=== PATIENT | female | born 1995 | race African-American/Black ===

== ENCOUNTER → 2016-05-06 | Outpatient (CLI) | payer OTHER ==
[~2016-05-06] VITALS: Ht 160 cm; Wt 139.3 kg
[~2016-05-06] MED LIST: ADVAIR 250/501 DISK IH; AMOXICILLIN500 MG PO; AUGMENTIN875 MG PO; AZITHROMYCIN250 MG1 PO; BACTRIM,SEPT1 TABLET PO; BENTYL10 MG PO; BENTYL20 MG PO; CEFDINIR300 MG PO; CIPRO250 MG PO; CIPRO500 MG PO; CIPROFLOXACIN250 MG PO; CLINDAMYCIN HC300 MG PO; CLINORIL200 MG PO; DIFLUCAN150 MG PO; ECONAZOLE NITRA15 GM TP; ENDOCET 5-3251 EACH PO; FLEXERIL10 MG PO; HUMALOG MI100 UNIT/6 SC; HUMALOG MI100 UNIT/6 SQ; HUMULIN R500 UNITS/ SC; IBUPROFEN800 MG PO; IMODIUM MS REL1 EACH PO; INSULIN SYRING1 EA30 MC; KEFLEX500 MG PO; LEVAQUIN500 MG PO; LEVEMIR100 UNIT/2 SC; LORTAB 5-325 M1 EACH PO; LYRICA100 MG PO; MAGIC MOUTHWASH1 ML MM; MEDROL DOSEPAK4 MG PO; MOTRIN600 MG PO; MOTRIN800 MG PO; NAPROSYN500 MG PO; NORCO 5/3251 TABLET PO; NYSTATIN15 G1 TP; OMEPRAZOLE40 M1 PO; PERCOCET 5/31 TABLET PO; PREDNISONE20 MG PO; PROVENTIL2.5 MG/3 M IH; REGLAN5 MG PO; ROBITUSSIN AC,T10 ML PO; SOMA350 MG PO; TEST STRIPS MC; ULTRACET1 TABLET PO; VALACYCLOVIR1000 MG PO; VALIUM5 MG PO; VENTOLIN HFA18 GM IH; WOMEN'S DAILY1 EAC1 PO; ZADITOR 0.100 DROP/5 BOTH EYES; ZANTAC150 MG PO; ZITHROMAX Z-PA250 MG PO; ZOFRAN4 MG PO; ZOFRAN8 MG PO; ZYRTEC10 M3 PO
[2016-05-06 15:12] LABS: POINT-OF-CARE METER ID UU13113694
[2016-05-06 15:13] LABS: ANION GAP 11 MEQ/L (2-14); CHLORIDE 99 MEQ/L (99-109); GFR ESTIMATE (CALCULATED) > 59 mL/min/; GLUCOSE 193 mg/dL (70-99); POTASSIUM 4.5 MEQ/L (3.7-5.4); SAMPLE HEMOLYSIS CHECK 0; SAMPLE ICTERIC CHECK 0; SAMPLE LIPEMIA CHECK 0; SODIUM 138 MEQ/L (136-147); UREA NITROGEN (BUN) 6 mg/dL (9-23)
[2016-05-06 16:34] LABS: POINT-OF-CARE METER ID UU13113819
== END | disposition home or self-care (01) ==
LOC: AMB 14:23
PROVIDERS: Specialist
DX: R93.3 Abnormal findings on diagnostic imaging of other parts of digestive tract (principal); K29.70 Gastritis, unspecified, without bleeding; M79.7 Fibromyalgia; E10.9 Type 1 diabetes mellitus without complications; Z79.4 Long term (current) use of insulin
CPT/HCPCS: 80048; 82948; 88305; 88342 TC; J2250

== ENCOUNTER 2016-06-06 01:02 | Inpatient (IN) | payer OTHER ==
[~2016-06-06] VITALS: Ht 160 cm; Wt 129.9 kg
[2016-06-06 01:39] LABS: BASOPHIL COUNT 0.1 K/uL (0-0.1); EOSINOPHIL (%) 0.3 % (0-5); HEMATOCRIT 39.5 % (36.0-46.0); IMMATURE GRANULOCYTE (%) 0.7 % (0.0-0.7); IMMATURE GRANULOCYTE COUNT 0.7 K/uL; LYMPHOCYTE COUNT 2.1 K/uL (1.0-2.8); MCH 27.7 PG (29.0-34.0); MCHC 33.2 G/DL (30.0-36.0); MCV 83.5 FL (83-99); MEAN PLAT.VOLUME 9.8 uM^3 (9.5-12.4); MONOCYTE COUNT 0.8 K/uL (0-0.8); NEUTROPHIL (%) 70.4 % (45-76); NEUTROPHIL COUNT 7.2 K/uL (1.8-6.4); PLATELET COUNT 399 K/uL (156-360); RBC DIS.WIDTH-CV 13.5 % (11.8-14.6); RBC DIS.WIDTH-SD 40.4 % (39-53); RED BLOOD COUNT 4.73 M/uL (3.80-5.20); WHITE BLOOD COUNT 10.2 K/uL (4.1-10.2)
[2016-06-06 01:47] LABS: CHLORIDE 94 mEq/L (99-109); POTASSIUM 4.7 mEq/L (3.7-5.4); SODIUM 129 mEq/L (136-147)
[2016-06-06 01:51] LABS: ADD MIUA? NO; BILIRUBIN NEGATIVE; BLOOD NEGATIVE; COLOR COLORLESS ((YELLOW)); GLUCOSE (STRIP) >=500; KETONES NEGATIVE; LEUKOCYTES NEGATIVE; NITRITE NEGATIVE; PROTEIN (STRIP) NEGATIVE; SPECIFIC GRAVITY 1.026 (1.000-1.030); UCUL ADDED? NO; UROBILINOGEN 0.2 MG/DL (0.2-1.0)
[2016-06-06 01:51] LABS: TOTAL BILIRUBIN 0.3 mg/dL (0.0-1.0)
[2016-06-06 01:53] LABS: ALKALINE PHOSPHATASE 107 IU/L (3-129); GFR ESTIMATE (CALCULATED) > 59 mL/min/
[2016-06-06 01:54] LABS: UREA NITROGEN (BUN) 14 mg/dL (9-23)
[2016-06-06 01:56] LABS: LIPASE 36 U/L (1.0-51.0)
[2016-06-06 01:58] LABS: GLUCOSE 634 mg/dL (70-99)
[2016-06-06 02:03] LABS: QUANTITATIVE HCG < 4.0 MIU/ML
[2016-06-06 07:45] LABS: Estimated Average Glucose 312 mg/dL (70-123); HEMOGLOBIN A1c (GLYCOHEMOGLOB) 12.5 % HGB (Below 5.7)
[2016-06-06 08:34] VITALS: BP 114/58
[2016-06-06] MEDS ORDERED: ALBUTEROL2.5 MG/3 M IH (09:28)
[2016-06-06] MEDS ORDERED: ERGOCALCIF50000 UNIT PO (09:28)
[2016-06-06 11:24] LABS: POINT-OF-CARE METER ID UU13113778; POINT-OF-CARE USER ID NUTMMM10
[2016-06-06 11:24] LABS: POINT-OF-CARE METER ID UU13113702
[2016-06-06 11:24] LABS: POINT-OF-CARE METER ID UU13113702
[2016-06-06 11:24] LABS: POINT-OF-CARE METER ID UU13113702
[2016-06-06 11:24] LABS: POINT-OF-CARE METER ID UU13113702
[2016-06-06 12:32] VITALS: BP 128/60
[2016-06-06 12:57] LABS: INFLUENZA A VIRAL ANTIGEN POSITIVE; INFLUENZA B VIRAL ANTIGEN NEGATIVE
[2016-06-06 13:20] LABS: GLUCOSE 397 mg/dL (70-99)
[2016-06-06 15:44] VITALS: BP 126/61
[2016-06-06 15:58] LABS: ANION GAP 11 MEQ/L (2-14); CHLORIDE 100 MEQ/L (99-109); GFR ESTIMATE (CALCULATED) > 59 mL/min/; GLUCOSE 371 mg/dL (70-99); POTASSIUM 3.8 MEQ/L (3.7-5.4); SAMPLE HEMOLYSIS CHECK 0; SAMPLE ICTERIC CHECK 0; SAMPLE LIPEMIA CHECK 0; SODIUM 133 MEQ/L (136-147); UREA NITROGEN (BUN) 11 mg/dL (9-23)
[2016-06-06 18:05] LABS: POINT-OF-CARE METER ID UU14162508
[2016-06-06 19:35] VITALS: BP 136/84
[2016-06-06 22:23] LABS: POINT-OF-CARE METER ID UU14162508
[2016-06-06 23:41] VITALS: BP 117/56
[2016-06-07 02:48] LABS: POINT-OF-CARE METER ID UU14162508
[2016-06-07 03:00] VITALS: BP 118/55
[2016-06-07 06:00] LABS: POINT-OF-CARE METER ID UU14162508
[2016-06-07 07:16] LABS: BASOPHIL COUNT 0.1 K/uL (0-0.1); EOSINOPHIL (%) 2.4 % (0-5); EOSINOPHIL COUNT 0.2 K/uL (0-0.3); HEMATOCRIT 37.6 % (36.0-46.0); IMMATURE GRANULOCYTE COUNT 0.1 K/uL; LYMPHOCYTE COUNT 2.4 K/uL (1.0-2.8); MCHC 32.7 G/DL (30.0-36.0); MCV 85.5 FL (83-99); MEAN PLAT.VOLUME 9.6 uM^3 (9.5-12.4); MONOCYTE (%) 12.6 % (3-12); MONOCYTE COUNT 1.1 K/uL (0-0.8); NEUTROPHIL (%) 54.6 % (45-76); NEUTROPHIL COUNT 4.6 K/uL (1.8-6.4); PLATELET COUNT 354 K/uL (156-360); RBC DIS.WIDTH-SD 43.6 % (39-53); WHITE BLOOD COUNT 8.4 K/uL (4.1-10.2)
[2016-06-07 07:31] LABS: ANION GAP 8 MEQ/L (2-14); CHLORIDE 101 MEQ/L (99-109); GFR ESTIMATE (CALCULATED) > 59 mL/min/; GLUCOSE 234 mg/dL (70-99); MAGNESIUM 1.7 mg/dl (1.3-2.7); POTASSIUM 3.8 MEQ/L (3.7-5.4); SAMPLE HEMOLYSIS CHECK 0; SAMPLE ICTERIC CHECK 0; SAMPLE LIPEMIA CHECK 0; SODIUM 133 MEQ/L (136-147); UREA NITROGEN (BUN) 11 mg/dL (9-23)
[2016-06-07 07:40] VITALS: BP 114/54
[2016-06-07 09:02] LABS: POINT-OF-CARE METER ID UU14162508
[2016-06-07 11:28] LABS: HBSG INDEX 0.18; HPCA INDEX 0.16
[2016-06-07 11:29] LABS: ANTI-HEPATITIS A VIRUS (IGM) Nonreactive; HAV INDEX 0.12
[2016-06-07 11:30] LABS: ANTI-HEPATITIS B CORE (IGM) Nonreactive; HBC IgM INDEX 0.18
[2016-06-07 16:09] LABS: POINT-OF-CARE METER ID UU14162508
[2016-06-07 23:37] VITALS: BP 137/74
[2016-06-08 07:55] LABS: ALKALINE PHOSPHATASE 82 IU/L (3-129); ANION GAP 10 MEQ/L (2-14); CHLORIDE 100 MEQ/L (99-109); GFR ESTIMATE (CALCULATED) > 59 mL/min/; GLUCOSE 264 mg/dL (70-99); POTASSIUM 4.5 MEQ/L (3.7-5.4); SAMPLE HEMOLYSIS CHECK 0; SAMPLE ICTERIC CHECK 0; SAMPLE LIPEMIA CHECK 0; SODIUM 134 MEQ/L (136-147); TOTAL BILIRUBIN 0.4 MG/DL (0.0-1.0); UREA NITROGEN (BUN) 8 mg/dL (9-23)
[2016-06-08 08:00] VITALS: BP 114/59
[2016-06-08] MEDS ORDERED: OSELTAMIVIR PHO75 MG PO (14:01)
== END 2016-06-08 15:41 | disposition home or self-care (01) | DRG 638 ==
LOC: EME 01:02 → 2EAST 06:34 → EDOF 06:34 → 2EAST 07:53
PROVIDERS: Emergency Medicine; Hospitalist; Internal Medicine
DX: E11.00 Type 2 diabetes mellitus with hyperosmolarity without nonketotic hyperglycemic-hyperosmolar coma (NKHHC) (principal); Z68.43 Body mass index [BMI] 50.0-59.9, adult; J10.89 Influenza due to other identified influenza virus with other manifestations; K75.81 Nonalcoholic steatohepatitis (NASH); E11.65 Type 2 diabetes mellitus with hyperglycemia; J45.909 Unspecified asthma, uncomplicated; E66.01 Morbid (severe) obesity due to excess calories; Z96.41 Presence of insulin pump (external) (internal); Z79.4 Long term (current) use of insulin; Z91.19 Patient's noncompliance with other medical treatment and regimen
CPT/HCPCS: 71010; 80048; 80048 91; 80053; 80074; 81003; 82009; 82800; 82948; 83036; 83690; 83735; 84702; 84999; 85025; 87493; 87502; 94640 76; 99202; 99281; 99285; J1650; J1815; J7030; S0028

== ENCOUNTER 2016-08-14 04:58 | Emergency (ER) | payer OTHER ==
[~2016-08-14] VITALS: Ht 160 cm; Wt 140.0 kg
[~2016-08-14 04:58] MED LIST changes: +ALBUTEROL2.5 MG/3 M IH; +ERGOCALCIF50000 UNIT PO; +OSELTAMIVIR PHO75 MG PO
[2016-08-14 07:32] LABS: BASOPHIL COUNT 0.1 K/uL (0-0.1); EOSINOPHIL (%) 2.6 % (0-5); EOSINOPHIL COUNT 0.3 K/uL (0-0.3); HEMATOCRIT 38.3 % (36.0-46.0); IMMATURE GRANULOCYTE (%) 0.8 % (0.0-0.7); IMMATURE GRANULOCYTE COUNT 0.1 K/uL; INSTRUMENT ABS NEUTROPHIL CT 8.2 K/uL; LYMPHOCYTE COUNT 3.4 K/uL (1.0-2.8); MCH 27.8 PG (29.0-34.0); MCHC 32.9 G/DL (30.0-36.0); MCV 84.5 FL (83-99); MEAN PLAT.VOLUME 9.4 uM^3 (9.5-12.4); MONOCYTE (%) 7.4 % (3-12); NEUTROPHIL (%) 62.5 % (45-76); NEUTROPHIL COUNT 8.2 K/uL (1.8-6.4); PLATELET COUNT 447 K/uL (156-360); RBC DIS.WIDTH-CV 13.5 % (11.8-14.6); RBC DIS.WIDTH-SD 41.6 % (39-53); RED BLOOD COUNT 4.53 M/uL (3.80-5.20); WHITE BLOOD COUNT 13.1 K/uL (4.1-10.2)
[2016-08-14 08:22] LABS: ANION GAP 10 MEQ/L (2-14); CHLORIDE 99 MEQ/L (99-109); GFR ESTIMATE (CALCULATED) > 59 mL/min/; GLUCOSE 170 mg/dL (70-99); SAMPLE HEMOLYSIS CHECK 1; SAMPLE ICTERIC CHECK 0; SAMPLE LIPEMIA CHECK 1; SODIUM 135 MEQ/L (136-147); UREA NITROGEN (BUN) 9 mg/dL (9-23)
[2016-08-14] MEDS ORDERED: TYLENOL WITH C1 EACH PO (09:22)
[2016-08-14 09:40] VITALS: BP 126/87
== END 2016-08-14 09:41 | disposition home or self-care (01) ==
LOC: EME 04:58
PROVIDERS: Emergency Medicine
DX: M79.604 Pain in right leg (principal); M79.605 Pain in left leg; R25.2 Cramp and spasm; E11.9 Type 2 diabetes mellitus without complications; J45.909 Unspecified asthma, uncomplicated; Z79.4 Long term (current) use of insulin
CPT/HCPCS: 80048; 85025; 93970; 99281; 99284

== ENCOUNTER 2016-09-13 07:38 | Emergency (ER) | payer OTHER ==
[~2016-09-13] VITALS: Ht 160 cm; Wt 136.4 kg
[~2016-09-13 07:38] MED LIST changes: +TYLENOL WITH C1 EACH PO
[2016-09-13 09:20] LABS: BASOPHIL COUNT 0.1 K/uL (0-0.1); EOSINOPHIL (%) 2.4 % (0-5); EOSINOPHIL COUNT 0.2 K/uL (0-0.3); HEMATOCRIT 42.9 % (36.0-46.0); IMMATURE GRANULOCYTE (%) 0.7 % (0.0-0.7); IMMATURE GRANULOCYTE COUNT 0.1 K/uL; INSTRUMENT ABS NEUTROPHIL CT 5.1 K/uL; LYMPHOCYTE COUNT 3.2 K/uL (1.0-2.8); MCH 27.8 PG (29.0-34.0); MCHC 32.6 G/DL (30.0-36.0); MCV 85.3 FL (83-99); MEAN PLAT.VOLUME 9.2 uM^3 (9.5-12.4); MONOCYTE (%) 7.4 % (3-12); MONOCYTE COUNT 0.7 K/uL (0-0.8); NEUTROPHIL (%) 54.4 % (45-76); NEUTROPHIL COUNT 5.1 K/uL (1.8-6.4); PLATELET COUNT 429 K/uL (156-360); RBC DIS.WIDTH-CV 13.5 % (11.8-14.6); RBC DIS.WIDTH-SD 41.7 % (39-53); RED BLOOD COUNT 5.03 M/uL (3.80-5.20); WHITE BLOOD COUNT 9.4 K/uL (4.1-10.2)
[2016-09-13 09:41] LABS: CHLORIDE 98 mEq/L (99-109); POTASSIUM 4.1 mEq/L (3.7-5.4)
[2016-09-13 09:42] LABS: SODIUM 134 mEq/L (136-147)
[2016-09-13 09:43] LABS: GLUCOSE 390 mg/dL (70-99)
[2016-09-13 09:45] LABS: ANION GAP 12 MEQ/L (2-14)
[2016-09-13 09:47] LABS: GFR ESTIMATE (CALCULATED) > 59 mL/min/
[2016-09-13 09:48] LABS: UREA NITROGEN (BUN) 6 mg/dL (9-23)
[2016-09-13 09:51] LABS: TROP-I INTERPRETATION NEGATIVE; TROPONIN-I < 0.01 ng/mL (0.0-0.30)
[2016-09-13 09:56] LABS: QUANTITATIVE HCG < 4.0 MIU/ML
[2016-09-13] MEDS ORDERED: ANTIVERT25 MG PO (11:42)
[2016-09-13 12:32] VITALS: BP 133/89
[2016-09-13] MEDS ORDERED: TYLENOL WITH C1 EACH PO (12:49)
== END 2016-09-13 12:59 | disposition home or self-care (01) ==
LOC: EME 07:38
PROVIDERS: Emergency Medicine
DX: R42 Dizziness and giddiness (principal); E11.65 Type 2 diabetes mellitus with hyperglycemia; R68.84 Jaw pain; R11.0 Nausea; R00.2 Palpitations; R51 Headache; R13.10 Dysphagia, unspecified; R00.0 Tachycardia, unspecified; J45.909 Unspecified asthma, uncomplicated; Z87.442 Personal history of urinary calculi; Z79.4 Long term (current) use of insulin
CPT/HCPCS: 71010; 80048; 84484; 84702; 85025; 93005; 99281; 99285; J2405; J7030

== ENCOUNTER 2016-09-20 07:34 | Emergency (ER) | payer OTHER ==
[~2016-09-20] VITALS: Ht 160 cm; Wt 136.7 kg
[~2016-09-20 07:34] MED LIST changes: +ANTIVERT25 MG PO
[2016-09-20 08:18] LABS: BASOPHIL COUNT 0.1 K/uL (0-0.1); EOSINOPHIL (%) 2.9 % (0-5); EOSINOPHIL COUNT 0.3 K/uL (0-0.3); HEMATOCRIT 41.2 % (36.0-46.0); IMMATURE GRANULOCYTE (%) 0.5 % (0.0-0.7); IMMATURE GRANULOCYTE COUNT 0.1 K/uL; INSTRUMENT ABS NEUTROPHIL CT 5.9 K/uL; LYMPHOCYTE COUNT 2.2 K/uL (1.0-2.8); MCH 27.5 PG (29.0-34.0); MCHC 32.5 G/DL (30.0-36.0); MCV 84.6 FL (83-99); MEAN PLAT.VOLUME 9.2 uM^3 (9.5-12.4); MONOCYTE (%) 7.6 % (3-12); MONOCYTE COUNT 0.7 K/uL (0-0.8); NEUTROPHIL COUNT 5.9 K/uL (1.8-6.4); PLATELET COUNT 433 K/uL (156-360); RBC DIS.WIDTH-CV 13.7 % (11.8-14.6); RBC DIS.WIDTH-SD 42.4 % (39-53); RED BLOOD COUNT 4.87 M/uL (3.80-5.20); WHITE BLOOD COUNT 9.2 K/uL (4.1-10.2)
[2016-09-20 08:42] LABS: ANION GAP 10 MEQ/L (2-14); CHLORIDE 101 MEQ/L (99-109); POTASSIUM 4.2 MEQ/L (3.7-5.4); SAMPLE HEMOLYSIS CHECK 0; SAMPLE ICTERIC CHECK 0; SAMPLE LIPEMIA CHECK 0; SODIUM 135 MEQ/L (136-147); TOTAL BILIRUBIN 0.6 MG/DL (0.0-1.0)
[2016-09-20 08:47] LABS: ALKALINE PHOSPHATASE 100 IU/L (3-129); GFR ESTIMATE (CALCULATED) > 59 mL/min/; GLUCOSE 334 mg/dL (70-99); LIPASE 26 U/L (1.0-51.0); UREA NITROGEN (BUN) 10 mg/dL (9-23)
[2016-09-20 08:52] LABS: ADD MIUA? NO; BILIRUBIN NEGATIVE; BLOOD NEGATIVE; COLOR YELLOW ((YELLOW)); GLUCOSE (STRIP) >=500; KETONES 20; LEUKOCYTES NEGATIVE; NITRITE NEGATIVE; PROTEIN (STRIP) NEGATIVE; SPECIFIC GRAVITY 1.036 (1.000-1.030); UROBILINOGEN 0.2 MG/DL (0.2-1.0)
[2016-09-20 09:14] LABS: QUANTITATIVE HCG < 4.0 MIU/ML
[2016-09-20 09:50] LABS: C DIFF TOXIN NEGATIVE (NEGATIVE); PROBE CHECK PASS; SPECIMEN PROCESSING CONTROL PASS
[2016-09-20] MEDS ORDERED: IMODIUM A-D2 M2 PO (12:11)
[2016-09-20] MEDS ORDERED: ZOFRAN ODT4 MG PO (12:11)
[2016-09-20] MEDS ORDERED: BENTYL20 MG PO (12:11)
[2016-09-20 12:38] VITALS: BP 126/80
== END 2016-09-20 12:44 | disposition home or self-care (01) ==
LOC: EME 07:34
PROVIDERS: Emergency Medicine
DX: K52.9 Noninfective gastroenteritis and colitis, unspecified (principal); E11.65 Type 2 diabetes mellitus with hyperglycemia; Z79.4 Long term (current) use of insulin; J45.909 Unspecified asthma, uncomplicated
CPT/HCPCS: 80053; 81003; 83690; 84702; 85025; 87493; 99281; 99285; J1885; J2405; J7030

== ENCOUNTER → 2016-10-05 | Outpatient (CLI) | payer OTHER ==
[~2016-10-05] MED LIST changes: +IMODIUM A-D2 M2 PO; +ZOFRAN ODT4 MG PO
== END | disposition home or self-care (01) ==
LOC: NUC 08:30
DX: R11.2 Nausea with vomiting, unspecified (principal); R19.7 Diarrhea, unspecified
CPT/HCPCS: 78264; A9541

== ENCOUNTER 2016-10-24 08:58 | Day surgery (SDC) | payer OTHER ==
[~2016-10-24] VITALS: Ht 160 cm; Wt 139.5 kg
[~2016-10-24 08:58] MED LIST changes: +NEURONTIN300 MG PO
[2016-10-24 09:24] LABS: POINT-OF-CARE METER ID UU13113694
== END 2016-10-24 10:46 | disposition home or self-care (01) ==
LOC: PAIN 08:58 → SDC 09:15 → PAIN 10:46
PROVIDERS: Anesthesiology Pain Medicine
DX: M51.16 Intervertebral disc disorders with radiculopathy, lumbar region (principal); E10.65 Type 1 diabetes mellitus with hyperglycemia; E66.01 Morbid (severe) obesity due to excess calories; Z68.43 Body mass index [BMI] 50.0-59.9, adult; R00.0 Tachycardia, unspecified; J45.909 Unspecified asthma, uncomplicated; E10.43 Type 1 diabetes mellitus with diabetic autonomic (poly)neuropathy; K31.84 Gastroparesis; E78.1 Pure hyperglyceridemia; Z87.891 Personal history of nicotine dependence; Z79.4 Long term (current) use of insulin
CPT/HCPCS: 82948; J1100; J2250; J3010

== ENCOUNTER → 2017-08-02 | Outpatient (CLI) | payer OTHER ==
[~2017-08-02] VITALS: Ht 160 cm; Wt 147.0 kg
[~2017-08-02] MED LIST changes: +ARYMO ER15 MG PO; +JANUVIA25 MG PO; -NEURONTIN300 MG PO; +NEURONTIN600 MG PO; +PROVENTIL,2.5 MG/3 M IH; +XTAMPZA ER9 MG PO
[2017-08-02 11:25] LABS: CHLORIDE 99 MEQ/L (99-109); CREATININE 0.6 MG/DL (0.6-1.3); GFR ESTIMATE (CALCULATED) > 59 mL/min/; GLUCOSE 229 mg/dL (70-99); POTASSIUM 4.5 MEQ/L (3.7-5.4); SODIUM 131 MEQ/L (136-147); UREA NITROGEN (BUN) 8 mg/dL (9-23)
== END | disposition home or self-care (01) ==
LOC: AMB 07-27 08:00
PROVIDERS: Internal Medicine Gastroenterology
PROC: 0DB78ZX Excision of Stomach, Pylorus, Via Natural or Artificial Opening Endoscopic, Diagnostic (ICD-10-PCS; principal; 2017-08-02)
DX: R10.33 Periumbilical pain (principal); K44.9 Diaphragmatic hernia without obstruction or gangrene; K29.70 Gastritis, unspecified, without bleeding; R11.10 Vomiting, unspecified; K76.0 Fatty (change of) liver, not elsewhere classified; E66.01 Morbid (severe) obesity due to excess calories; E11.9 Type 2 diabetes mellitus without complications; Z79.84 Long term (current) use of oral hypoglycemic drugs; Z87.891 Personal history of nicotine dependence; Z83.1 Family history of other infectious and parasitic diseases; Z83.79 Family history of other diseases of the digestive system; Z82.49 Family history of ischemic heart disease and other diseases of the circulatory system; Z82.3 Family history of stroke; Z83.3 Family history of diabetes mellitus
CPT/HCPCS: 80048; 82948; 88305; 93005; J2250